=== PATIENT | female | born 1955 | race Caucasian/White ===

== ENCOUNTER → 2020-03-24 | Outpatient (CLI) | payer MEDICARE | END | disposition home or self-care (01) | LOC: CFH 07:51 | PROVIDERS: ATTEND Internal Medicine Cardiovascular Disease | DX: I10 Essential (primary) hypertension (principal); I47.2 Ventricular tachycardia; I25.2 Old myocardial infarction; E78.2 Mixed hyperlipidemia | CPT/HCPCS: 78452; 93017; A9502 ==